=== PATIENT | female | born 1945 | race Caucasian/White ===

== ENCOUNTER 2019-05-28 15:25 | Inpatient (IN) | payer OTHER, MEDICAID ==
[~2019-05-28] VITALS: Ht 154.9 cm; Wt 60.3 kg
[2019-05-28] MEDS ORDERED: OLANZAPINE 10 MG VIAL IM ONE ×2 (15:45→15:48)
[2019-05-28] MEDS ORDERED: ACETAMINOPHEN ES 500 MG TABLET ONE (15:57)
[2019-05-28] MEDS ORDERED: ACETAMINOPHEN ES 500 MG TABLET PO ONE (16:00)
[2019-05-28] MEDS ORDERED: IV NORMAL SALINE 1000 ML BAG IV ONE (16:00)
--- NOTE | 2019-05-28 16:15 | NUR ---
Dr Garner at the bedside for MSE.
[2019-05-28 16:34] LABS: BASOPHILS # (AUTO) 0.1 K/uL (0.0-8.0); BASOPHILS % (AUTO) 0.7 % (0.0-2.0); EOSINOPHILS # (AUTO) 0.3 K/uL (0.0-0.7); EOSINOPHILS % (AUTO) 1.9 % (0.0-7.0); HEMATOCRIT 39.8 % (31.2-41.9); LYMPHOCYTES # (AUTO) 3.1 K/uL (20.0-40.0); LYMPHOCYTES % (AUTO) 21.1 % (20.5-51.5); MEAN CORPUSCULAR HEMOGLOBIN 32.6 uug (24.7-32.8); MEAN CORPUSCULAR HGB CONC 33 g/dL (32.3-35.6); MEAN CORPUSCULAR VOLUME 99.8 fL (75.5-95.3); MONOCYTES # (AUTO) 1.5 K/uL (2.0-10.0); MONOCYTES % (AUTO) 10.2 % (0.0-11.0); NEUTROPHILS # (AUTO) 9.6 K/uL (1.8-8.9); NEUTROPHILS % (AUTO) 66.1 % (38.5-71.5); PLATELET COUNT (AUTO) 304 K/uL (179-408); RED BLOOD CELL COUNT(AUTO) 3.99 MIL/uL (3.63-4.92); WHITE BLOOD COUNT (AUTO) 14.6 K/uL (3.8-11.8)
[2019-05-28] MEDS ORDERED: AMLO10TA7 PO (16:36)
[2019-05-28] MEDS ORDERED: MEMA10TA PO (16:36)
[2019-05-28] MEDS ORDERED: CRAN425C6 PO (16:36)
[2019-05-28] MEDS ORDERED: LACT10SO PO (16:36)
[2019-05-28] MEDS ORDERED: QUET25TA PO (16:36)
[2019-05-28] MEDS ORDERED: LISI-603 PO (16:36)
[2019-05-28] MEDS ORDERED: FOLIC ACID PO (16:36)
[2019-05-28] MEDS ORDERED: TRAZ-182 PO (16:36)
[2019-05-28] MEDS ORDERED: ACET-2154 PO ×3 (16:36)
[2019-05-28] MEDS ORDERED: CITA40TA11 PO (16:36)
[2019-05-28] MEDS ORDERED: MULT1TAB73 PO (16:36)
[2019-05-28] MEDS ORDERED: DIVA250T PO (16:36)
[2019-05-28] MEDS ORDERED: MELA5TAB PO (16:36)
[2019-05-28] MEDS ORDERED: MAGN400O6 PO (16:36)
[2019-05-28] MEDS ORDERED: THIA100T13 PO (16:36)
[2019-05-28] MEDS ORDERED: DONE5TAB34 PO (16:36)
[2019-05-28] MEDS ORDERED: DOCU-141 PO (16:36)
--- NOTE | 2019-05-28 17:04 | NUR ---
Pt is calm and cooperative at this time. PT's daughter at the bedside.
[2019-05-28 17:11] LABS: ALANINE AMINOTRANSFERASE 35 U/L (14-59); ALKALINE PHOSPHATASE 58 U/L (50-136); ASPARTATE AMINOTRANSFERASE 27 U/L (15-37); BILIRUBIN,DIRECT 0.1 mg/dL (0.0-0.2); BILIRUBIN,TOTAL 0.3 mg/dL (0.2-1.0); CARBON DIOXIDE 28 mmol/L (21-32); CHLORIDE 106 mmol/L (98-107); CREATININE 0.9 mg/dL (0.6-1.3); GLUCOSE 91 mg/dL (74-106); POTASSIUM 3.7 mmol/L (3.5-5.1); TOTAL PROTEIN, SERUM 6.6 g/dL (6.4-8.2); UREA NITROGEN, BLOOD 19 mg/dL (7-18)
[2019-05-28 17:25] LABS: ETHANOL < 3 MG/DL (0-0)
[2019-05-28 17:26] LABS: ACETAMINOPHEN < 2.0 ug/mL (10-30)
--- NOTE | 2019-05-28 17:35 | NUR ---
Pt is medically cleared by Dr ruiz.
[2019-05-28] MEDS ORDERED: NA P133E RC (17:45)
[2019-05-28] MEDS ORDERED: BISA10SU61 RC (17:45)
--- NOTE | 2019-05-28 17:49 | NUR ---
Sarwat Storey LCSW at the bedside for psych eval.
[2019-05-28] MEDS ORDERED: MAGNESIUM HYDROXIDE 30 ML LIQUID UDC PO PRN (20:00)
[2019-05-28] MEDS ORDERED: MAG HYDROX/AL HYDROX/SIMETH 30 ML LIQUID UDC PO PRN (20:00)
--- NOTE | 2019-05-28 20:15 | NUR ---
Notified Dr Flores regarding the need for medication reconciliation and H&P.
[2019-05-28] MEDS: LORAZEPAM 1 MG TABLET PO PRN (21:06)
[2019-05-28 21:58] VITALS: BP 121/62
--- NOTE | 2019-05-28 22:00 | NUR ---
received to care, from the emergency room, at 1914, on a 72 hour hold, for danger to self/gravely disabled, a transfer from [facility]. according to the hold, she had been screaming, and unable to stay in her bed, frequently attempting to elope. she also had made statements that she wanted to . according to her daughter, this is not her baseline behavior, and the problem started, after they had changed her psychotropic medications. upon arrival, she appeared confused, and agitated. denied SI, or any desire to harm self. unable to obtain any history from patient. she was uncooperative with assessment, continually yelling, and difficult to redirect. she was assisted to bed, but continued to yell. staff assisted her with diaper change, but she pinched and cursed. PRN ativan was given at 2105, which was effective in calming her down. as of 2199, she appears to be asleep. no distress noted. will continue to monitor closely.
--- NOTE | 2019-05-28 22:26 | NUR ---
Pt incontinent, Pt's daughter August refused straight cath to collect UA.
[2019-05-29] MEDS ORDERED: Z GUARD REMEDY PASTE 57 GM TUBE TOP SCH (03:30)
--- NOTE | 2019-05-29 06:00 | NUR ---
slept 8 hours, total.
[2019-05-29 07:30] VITALS: BP 141/78
[2019-05-29] MEDS: LORAZEPAM 1 MG TABLET PO PRN ×3 (07:54→19:59)
[2019-05-29] MEDS ORDERED: BISACODYL 10 MG SUPP.RECT RC PRN (08:15)
[2019-05-29] MEDS ORDERED: Medication Not On Formulary EA (Lactulose (Duphalac) 20 GM) PO SCH (08:15)
[2019-05-29] MEDS: THIAMINE HCL 100 MG TABLET PO SCH (08:56)
[2019-05-29] MEDS: LISINOPRIL 20 MG TABLET PO SCH (08:57)
[2019-05-29] MEDS: AMLODIPINE 10 MG TABLET PO SCH (08:57)
[2019-05-29] MEDS: DOCUSATE SODIUM 100 MG CAPSULE PO SCH (08:57)
[2019-05-29] MEDS ORDERED: Medication Not On Formulary EA (Citalopram Hydrobromide (Citalopram Hbr) 1 TAB) PO SCH (09:00)
[2019-05-29] MEDS: FOLIC ACID 1 MG TABLET PO SCH (09:00)
[2019-05-29] MEDS ORDERED: LACTULOSE 20 G/30 ML LIQUID UDC PO PRN (09:00)
[2019-05-29] MEDS ORDERED: Medication Not On Formulary EA (Multivitamins (Multivitamin) 1 TAB) PO SCH (09:00)
[2019-05-29] MEDS ORDERED: CRANBERRY EXTRACT PO SCH (09:00)
[2019-05-29] MEDS: MULTIVITAMINS,THERAPEUTIC TABLET PO SCH (09:00)
[2019-05-29] MEDS ORDERED: Medication Not On Formulary EA ([Folic Acid] 1 MG) PO SCH (09:00)
[2019-05-29] MEDS ORDERED: CITALOPRAM 20 MG TABLET PO SCH (09:00)
[2019-05-29] MEDS ORDERED: OLANZAPINE 10 MG VIAL IM ONE (09:30)
--- NOTE | 2019-05-29 10:27 | NUR ---
Received patient from maintenance supervisor 2nd shift, awake, agitated. Trying to climb out of bed. Unable to redirect. Attempted to assist patient with breakfast. Patient anxious and noncompliant with medications. notified and order received for Zyprexa 5 mg IM. Shot tolerated well. Monitoring patients resp status and monitoring for safety.
--- NOTE | 2019-05-29 12:04 | NUR ---
Social Work Note/Initial Discharge Plan: Patient currently resides at [facility]; [address] , [place] [address]; ([phone]). Per patients daughter August ([phone]) would want patient back to facility. flume worker will work with the patient and the MD regarding appropriate discharge planning. flume worker will form a safe and proper discharge.
--- NOTE | 2019-05-29 12:05 | NUR ---
Social Work Note/Family Contact: frog or oyster farmworker spoke with patients daughter August ([phone]) to gather collateral and discussed treatment plan and discharge plan.
[2019-05-29] MEDS: ACETAMINOPHEN 325 MG TABLET PO PRN (15:57)
[2019-05-29 16:04] VITALS: BP 120/78
[2019-05-29] MEDS ORDERED: DIVALPROEX 250 MG TABLET.DR PO SCH (17:00)
[2019-05-29] MEDS: DIVALPROEX SPRINKLE 125 MG CAP.SPRINK PO SCH (17:16)
[2019-05-29] MEDS ORDERED: Medication Not On Formulary EA (Melatonin 1 TAB) PO SCH (18:00)
[2019-05-29 20:00] VITALS: BP 135/68
[2019-05-29] MEDS: QUETIAPINE FUMARATE 25 MG TABLET PO SCH (21:41)
[2019-05-29] MEDS: TRAZODONE 50 MG TABLET PO SCH (21:41)
[2019-05-29] MEDS: MELATONIN 3 MG TABLET PO SCH (21:41)
--- NOTE | 2019-05-29 23:00 | NUR ---
received to care, up in ethan chair, yelling, difficult to redirect. assisted to bed, but remained agitated, and yelling. PRN ativan was given at 1958, with much encouragement. she also took her bedtime medications. remains verbally abusive, at times. as of 2299, she remains awake, intermittently, but calmer. will continue to monitor closely.
--- NOTE | 2019-05-30 06:00 | NUR ---
slept 6.5 hours, total. continues to sleep. no distress noted.
--- NOTE | 2019-05-30 06:50 | NUR ---
pt is now awake, and agitated, yelling and scratching staff. assited up in ethan chair. PRN ativan was given, at this time. report given to oncoming shift.
[2019-05-30] MEDS: LORAZEPAM 1 MG TABLET PO PRN (06:56)
[2019-05-30 07:30] VITALS: BP 138/35
[2019-05-30 07:39] LABS: BASOPHILS % (AUTO) 0.4 % (0.0-2.0); EOSINOPHILS # (AUTO) 0.2 K/uL (0.0-0.7); EOSINOPHILS % (AUTO) 2.3 % (0.0-7.0); HEMATOCRIT 41.7 % (31.2-41.9); HEMOGLOBIN 13.9 g/dL (10.9-14.3); LYMPHOCYTES # (AUTO) 2.1 K/uL (20.0-40.0); LYMPHOCYTES % (AUTO) 21.6 % (20.5-51.5); MEAN CORPUSCULAR HEMOGLOBIN 32.7 uug (24.7-32.8); MEAN CORPUSCULAR HGB CONC 33 g/dL (32.3-35.6); MEAN CORPUSCULAR VOLUME 98.3 fL (75.5-95.3); MONOCYTES # (AUTO) 0.9 K/uL (2.0-10.0); MONOCYTES % (AUTO) 9.1 % (0.0-11.0); NEUTROPHILS # (AUTO) 6.5 K/uL (1.8-8.9); NEUTROPHILS % (AUTO) 66.6 % (38.5-71.5); PLATELET COUNT (AUTO) 328 K/uL (179-408); RED BLOOD CELL COUNT(AUTO) 4.24 MIL/uL (3.63-4.92); WHITE BLOOD COUNT (AUTO) 9.7 K/uL (3.8-11.8)
[2019-05-30 07:50] LABS: CREATININE 0.7 mg/dL (0.6-1.3); MAGNESIUM 1.7 mg/dL (1.8-2.4); POTASSIUM 3.8 mmol/L (3.5-5.1)
[2019-05-30 08:02] LABS: THYROID STIMULATING HORMONE 2.899 mIU/mL (0.358-3.740)
[2019-05-30] MEDS: THIAMINE HCL 100 MG TABLET PO SCH (08:34)
[2019-05-30] MEDS: QUETIAPINE FUMARATE 25 MG TABLET PO SCH ×2 (08:34→21:00)
[2019-05-30] MEDS: AMLODIPINE 10 MG TABLET PO SCH (08:35)
[2019-05-30] MEDS: FOLIC ACID 1 MG TABLET PO SCH (08:35)
[2019-05-30] MEDS: CITALOPRAM 20 MG TABLET PO SCH (08:35)
[2019-05-30] MEDS: DOCUSATE SODIUM 100 MG CAPSULE PO SCH (08:36)
[2019-05-30] MEDS: DIVALPROEX SPRINKLE 125 MG CAP.SPRINK PO SCH ×2 (08:36→16:42)
[2019-05-30] MEDS: LISINOPRIL 20 MG TABLET PO SCH (08:36)
[2019-05-30] MEDS: MULTIVITAMINS,THERAPEUTIC TABLET PO SCH (08:37)
[2019-05-30] MEDS ORDERED: MAGNESIUM OXIDE 400 MG TABLET PO ONE (15:15)
--- NOTE | 2019-05-30 15:38 | NUR ---
Social Work Note/Family Contact: field crop harvest worker spoke with patients daughter August ([phone]) who stated that she spoke to [facility] and that they stated that they do not want to accept patient back. This feature writer will work with daughter and the facility.
[2019-05-30 20:10] VITALS: BP 131/78
[2019-05-30] MEDS: TRAZODONE 50 MG TABLET PO SCH (21:00)
[2019-05-30] MEDS: MELATONIN 3 MG TABLET PO SCH (21:00)
--- NOTE | 2019-05-30 22:00 | NUR ---
received to care, asleep in bed. easy to arouse, but goes right back to sleep. vital signs stable. all medications were held, due to sleepiness. as of 2199, she remains asleep. no distress noted. will continue to monitor closely.
[2019-05-31] MEDS: LORAZEPAM 1 MG TABLET PO PRN ×2 (04:04→12:41)
--- NOTE | 2019-05-31 04:09 | NUR ---
pt is now awake, yelling and agitated. diaper change was performed, but she remains aggressive, yelling, cusing, and attempting to pinch and strike staff. PRN ativan was given at this time, with much encouragement.
--- NOTE | 2019-05-31 05:19 | NUR ---
remains agitated, yelling and cursing. will continue to monitor closely.
--- NOTE | 2019-05-31 06:30 | NUR ---
slept 8.0 hours, total. assisted with am care, and bedbath. PRN ativan was given at 0400 for agitation/ yelling. she was calmer now, but remains verbally abusive, and combative with care. currently up in ethan chair, talking to self.
[2019-05-31 07:30] VITALS: BP 114/93
[2019-05-31 07:43] LABS: BASOPHILS # (AUTO) 0.1 K/uL (0.0-8.0); HEMATOCRIT 44.5 % (31.2-41.9); HEMOGLOBIN 14.8 g/dL (10.9-14.3); MEAN CORPUSCULAR HGB CONC 33 g/dL (32.3-35.6); MEAN CORPUSCULAR VOLUME 98.9 fL (75.5-95.3); WHITE BLOOD COUNT (AUTO) 23.4 K/uL (3.8-11.8)
[2019-05-31 07:49] LABS: BASOPHILS % (AUTO) 0.3 % (0.0-2.0); EOSINOPHILS # (AUTO) 0.2 K/uL (0.0-0.7); EOSINOPHILS % (AUTO) 0.7 % (0.0-7.0); LYMPHOCYTES % (AUTO) 8.4 % (20.5-51.5); MONOCYTES # (AUTO) 1.9 K/uL (2.0-10.0); MONOCYTES % (AUTO) 8.2 % (0.0-11.0); NEUTROPHILS # (AUTO) 19.3 K/uL (1.8-8.9); NEUTROPHILS % (AUTO) 82.4 % (38.5-71.5); PLATELET COUNT (AUTO) 375 K/uL (179-408)
[2019-05-31] MEDS: DIVALPROEX SPRINKLE 125 MG CAP.SPRINK PO SCH ×2 (08:07→17:01)
[2019-05-31] MEDS: CITALOPRAM 20 MG TABLET PO SCH (08:07)
[2019-05-31] MEDS: DOCUSATE SODIUM 100 MG CAPSULE PO SCH (08:07)
[2019-05-31] MEDS: QUETIAPINE FUMARATE 25 MG TABLET PO SCH ×3 (08:07→20:07)
[2019-05-31] MEDS: THIAMINE HCL 100 MG TABLET PO SCH (08:08)
[2019-05-31] MEDS: FOLIC ACID 1 MG TABLET PO SCH (08:09)
[2019-05-31] MEDS: MULTIVITAMINS,THERAPEUTIC TABLET PO SCH (08:09)
[2019-05-31] MEDS: AMLODIPINE 10 MG TABLET PO SCH (08:10)
[2019-05-31] MEDS: LISINOPRIL 20 MG TABLET PO SCH (08:11)
[2019-05-31 08:48] LABS: CREATININE 1.1 mg/dL (0.6-1.3); MAGNESIUM 1.8 mg/dL (1.8-2.4); PHOSPHOROUS 3.6 mg/dL (2.5-4.9); POTASSIUM 4.5 mmol/L (3.5-5.1)
[2019-05-31 09:22] LABS: LYMPHOCYTES % (MANUAL) 6 % (20-40); MONOCYTES % (MANUAL) 9 % (2-10); NEUTROPHILS % (MANUAL) 85 % (42-75)
[2019-05-31] MEDS ORDERED: MIRALAX 17 GM POWD.PACK PO PRN (11:45)
[2019-05-31] MEDS: ACETAMINOPHEN 325 MG TABLET PO PRN (12:41)
[2019-05-31] MEDS: Z GUARD REMEDY PASTE 57 GM TUBE TOP PRN (13:59)
--- NOTE | 2019-05-31 14:23 | NUR ---
Social Work Note/Discharge Plan: ironworker foreman spoke to Simi from [facility] ([phone]) who stated that patient is welcomed back upon discharge.
[2019-05-31] MEDS: CEphaleXIN 500 MG CAPSULE PO SCH ×2 (14:36→20:07)
--- NOTE | 2019-05-31 14:47 | NUR ---
Social Work Note/Family Contact: pupil personnel worker spoke to patients daughter Yvonne ([phone]) who stated that she is feeling frustrated with this process with her mother. pupil personnel worker provided her comfort and was actively listening. pupil personnel worker provided Yvonne support and education.
[2019-05-31 16:10] LABS: BILIRUBIN,DIRECT 0.1 mg/dL (0.0-0.2); BILIRUBIN,TOTAL 0.4 mg/dL (0.2-1.0)
--- NOTE | 2019-05-31 16:50 | NUR ---
Gps/Band Bias Machine Operator- patient's daughter, August, called, wants to know progress of patient..Adequate information provided. Kept patient by Nurses station, fluids offere. Assisted with her meals, c/o dry mouth. Incontienent of urine, toileted, coccygeal area redness, brownish discolorations, z-guard applied, kept skin clean and dry.
[2019-05-31 17:08] VITALS: BP 100/69
--- NOTE | 2019-05-31 18:40 | NUR ---
Gps/Tinsmith Apprentice- Kept patient in her ethan-chair for safety. Tends to slide off her ethan-chair, fluids offered.Figity ,restless.
[2019-05-31 20:00] VITALS: BP 113/66
[2019-05-31] MEDS: TRAZODONE 50 MG TABLET PO SCH (20:07)
[2019-05-31] MEDS: MELATONIN 3 MG TABLET PO SCH (20:10)
[2019-06-01] MEDS: Z GUARD REMEDY PASTE 57 GM TUBE TOP PRN (01:24)
[2019-06-01 07:30] VITALS: BP 148/62
[2019-06-01 07:41] LABS: BASOPHILS # (AUTO) 0.1 K/uL (0.0-8.0); EOSINOPHILS # (AUTO) 0.4 K/uL (0.0-0.7); EOSINOPHILS % (AUTO) 2.6 % (0.0-7.0); HEMATOCRIT 39.4 % (31.2-41.9); HEMOGLOBIN 13.1 g/dL (10.9-14.3); LYMPHOCYTES # (AUTO) 3.6 K/uL (20.0-40.0); LYMPHOCYTES % (AUTO) 24.8 % (20.5-51.5); MEAN CORPUSCULAR HEMOGLOBIN 32.8 uug (24.7-32.8); MEAN CORPUSCULAR HGB CONC 33 g/dL (32.3-35.6); MEAN CORPUSCULAR VOLUME 98.7 fL (75.5-95.3); MONOCYTES # (AUTO) 1.5 K/uL (2.0-10.0); MONOCYTES % (AUTO) 10.4 % (0.0-11.0); NEUTROPHILS # (AUTO) 8.8 K/uL (1.8-8.9); NEUTROPHILS % (AUTO) 61.2 % (38.5-71.5); PLATELET COUNT (AUTO) 300 K/uL (179-408); RED BLOOD CELL COUNT(AUTO) 3.99 MIL/uL (3.63-4.92); WHITE BLOOD COUNT (AUTO) 14.4 K/uL (3.8-11.8)
[2019-06-01 08:09] LABS: CARBON DIOXIDE 27 mmol/L (21-32); CHLORIDE 107 mmol/L (98-107); GLUCOSE 97 mg/dL (74-106); MAGNESIUM 2.1 mg/dL (1.8-2.4); POTASSIUM 4.3 mmol/L (3.5-5.1); UREA NITROGEN, BLOOD 25 mg/dL (7-18)
[2019-06-01 08:20] LABS: CREATININE 1.2 mg/dL (0.6-1.3)
[2019-06-01] MEDS: CEphaleXIN 500 MG CAPSULE PO SCH ×2 (08:56→20:01)
[2019-06-01] MEDS: FOLIC ACID 1 MG TABLET PO SCH (08:56)
[2019-06-01] MEDS: DOCUSATE SODIUM 100 MG CAPSULE PO SCH (08:57)
[2019-06-01] MEDS: MULTIVITAMINS,THERAPEUTIC TABLET PO SCH (08:57)
[2019-06-01] MEDS: THIAMINE HCL 100 MG TABLET PO SCH (08:57)
[2019-06-01] MEDS: DIVALPROEX SPRINKLE 125 MG CAP.SPRINK PO SCH ×2 (08:57→17:44)
[2019-06-01] MEDS: AMLODIPINE 10 MG TABLET PO SCH (08:57)
[2019-06-01] MEDS: LISINOPRIL 20 MG TABLET PO SCH (08:57)
[2019-06-01] MEDS: CITALOPRAM 20 MG TABLET PO SCH (08:57)
[2019-06-01] MEDS: QUETIAPINE FUMARATE 25 MG TABLET PO SCH ×4 (09:18→20:01)
[2019-06-01] MEDS ORDERED: LORAZEPAM 2 MG/1 ML VIAL IM ONE (09:30)
[2019-06-01] MEDS ORDERED: diphenhydrAMINE 50 MG/1 ML VIAL IM ONE (09:30)
[2019-06-01] MEDS ORDERED: HALOPERIDOL LACTATE 5 MG/1 ML VIAL IM ONE (09:30)
[2019-06-01 16:50] LABS: *BILIRUBIN,URIN NEGATIVE (NEGATIVE); *BLOOD, URINE NEGATIVE (NEGATIVE); *CLARITY,URINE SLIGHTLY CLOUDY (CLEAR); *COLOR,URINE DARK YELLOW (YELLOW); *KETONES,URINE TRACE (NEGATIVE); LEUKOCYTE ESTERASE ,URINE NEGATIVE (NEGATIVE); NITRITE, URINE NEGATIVE (NEGATIVE); UGLUCOSE NEGATIVE (NEGATIVE)
[2019-06-01 17:36] VITALS: BP 134/66
[2019-06-01 18:10] LABS: MUCUS,URINE MANY /LPF (0-FEW); SQUAMOUS EPITHELIAL CELL,UR MODERATE /HPF (NONE SEEN)
[2019-06-01] MEDS: TRAZODONE 50 MG TABLET PO SCH (20:00)
[2019-06-01] MEDS: MELATONIN 3 MG TABLET PO SCH (20:09)
[2019-06-01 20:26] VITALS: BP 126/57
[2019-06-02 07:30] VITALS: BP 145/65
[2019-06-02] MEDS: AMLODIPINE 10 MG TABLET PO SCH (08:37)
[2019-06-02] MEDS: CEphaleXIN 500 MG CAPSULE PO SCH ×2 (08:37→20:17)
[2019-06-02] MEDS: THIAMINE HCL 100 MG TABLET PO SCH (08:37)
[2019-06-02] MEDS: MULTIVITAMINS,THERAPEUTIC TABLET PO SCH (08:37)
[2019-06-02] MEDS: QUETIAPINE FUMARATE 25 MG TABLET PO SCH ×4 (08:37→20:17)
[2019-06-02] MEDS: DIVALPROEX SPRINKLE 125 MG CAP.SPRINK PO SCH ×2 (08:37→16:52)
[2019-06-02] MEDS: CITALOPRAM 20 MG TABLET PO SCH (08:38)
[2019-06-02] MEDS: DOCUSATE SODIUM 100 MG CAPSULE PO SCH (08:38)
[2019-06-02] MEDS: LISINOPRIL 20 MG TABLET PO SCH (08:38)
[2019-06-02] MEDS: FOLIC ACID 1 MG TABLET PO SCH (08:38)
[2019-06-02 16:00] VITALS: BP 136/60
[2019-06-02] MEDS: ACETAMINOPHEN 325 MG TABLET PO PRN (16:52)
[2019-06-02] MEDS: TRAZODONE 50 MG TABLET PO SCH (20:17)
[2019-06-02] MEDS: MELATONIN 3 MG TABLET PO SCH (20:18)
[2019-06-02 20:36] VITALS: BP 112/56
[2019-06-02] MEDS: MEGESTROL ACETATE 400 MG/10 ML LIQUID UDC PO SCH (21:00)
--- NOTE | 2019-06-03 02:09 | NUR ---
Social Work Note/Coordination of Care: utility maintenance worker contacted NATALYA ([phone]) from [facility] and faxed patients H & P psychiatric notes and progress notes. Per NATALYA, he declined patient due to insurance not being accepted. utility maintenance worker contacted Anita ([phone]) from [facility] and faxed patients H & P psychiatric notes and progress notes. Per Anita, he declined patient due to insurance not being accepted. utility maintenance worker contacted Chyna from [facility] ([phone]) faxed patients H & P psychiatric notes and progress notes. Per Chyna, he declined patient due to insurance not being accepted.
--- NOTE | 2019-06-03 02:13 | NUR ---
Social Work Note/Family Contact: reinforcing iron worker helper spoke to patients daughter August ([phone]) and for alternative placement but daughter refused. However, this worker also tried SNFs and patient was not accepted due to insurance issues. Per August, she stated that she will change her mothers insurance to Medicare and will transfer her out of [facility].
[2019-06-03 07:30] VITALS: BP 171/75
--- NOTE | 2019-06-03 08:15 | NUR ---
Social Work Note/Family Contact: conservation worker spoke with patients daughter August ([phone]) who stated that she wants her mother back to [facility] but stated that the facility is giving her a hard time. This typewriter mechanic spoke to admin coordinator to help with this process. Per August, she stated that [facility] close to her house and that it is convenient. Per August, she stated by the end of the month she will change her mothers insurance to medicare so that she is able to find a better SNF.
[2019-06-03 08:44] LABS: CREATININE 0.8 mg/dL (0.6-1.3); POTASSIUM 4.3 mmol/L (3.5-5.1)
[2019-06-03 08:47] LABS: BASOPHILS # (AUTO) 0.1 K/uL (0.0-8.0); BASOPHILS % (AUTO) 0.6 % (0.0-2.0); EOSINOPHILS # (AUTO) 0.2 K/uL (0.0-0.7); EOSINOPHILS % (AUTO) 2.5 % (0.0-7.0); HEMATOCRIT 40.4 % (31.2-41.9); HEMOGLOBIN 13.4 g/dL (10.9-14.3); LYMPHOCYTES # (AUTO) 1.3 K/uL (20.0-40.0); LYMPHOCYTES % (AUTO) 13.4 % (20.5-51.5); MEAN CORPUSCULAR HEMOGLOBIN 32.8 uug (24.7-32.8); MEAN CORPUSCULAR HGB CONC 33 g/dL (32.3-35.6); MEAN CORPUSCULAR VOLUME 98.9 fL (75.5-95.3); MONOCYTES # (AUTO) 0.8 K/uL (2.0-10.0); MONOCYTES % (AUTO) 8.3 % (0.0-11.0); NEUTROPHILS # (AUTO) 7.3 K/uL (1.8-8.9); NEUTROPHILS % (AUTO) 75.2 % (38.5-71.5); PLATELET COUNT (AUTO) 282 K/uL (179-408); RED BLOOD CELL COUNT(AUTO) 4.09 MIL/uL (3.63-4.92)
[2019-06-03 08:49] LABS: WHITE BLOOD COUNT (AUTO) 9.7 K/uL (3.8-11.8)
[2019-06-03] MEDS: MEGESTROL ACETATE 400 MG/10 ML LIQUID UDC PO SCH ×2 (09:00→20:01)
[2019-06-03] MEDS: CITALOPRAM 20 MG TABLET PO SCH (09:18)
[2019-06-03] MEDS: CEphaleXIN 500 MG CAPSULE PO SCH ×2 (09:18→20:01)
[2019-06-03] MEDS: QUETIAPINE FUMARATE 25 MG TABLET PO SCH ×4 (09:19→20:00)
[2019-06-03] MEDS: DOCUSATE SODIUM 100 MG CAPSULE PO SCH (09:19)
[2019-06-03] MEDS: AMLODIPINE 10 MG TABLET PO SCH (09:19)
[2019-06-03] MEDS: THIAMINE HCL 100 MG TABLET PO SCH (09:19)
[2019-06-03] MEDS: MULTIVITAMINS,THERAPEUTIC TABLET PO SCH (09:19)
[2019-06-03] MEDS: FOLIC ACID 1 MG TABLET PO SCH (09:19)
[2019-06-03] MEDS: LISINOPRIL 20 MG TABLET PO SCH (09:19)
[2019-06-03] MEDS: DIVALPROEX SPRINKLE 125 MG CAP.SPRINK PO SCH ×2 (09:19→16:37)
--- NOTE | 2019-06-03 14:47 | NUR ---
Social Work Note/UR Note: woodworker helper contacted insurance [facility] ([phone]) and left Jacqueline hope verbal clinicals and asked to call this procedure writer to fax clinicals.
[2019-06-03 15:43] VITALS: BP 95/49
[2019-06-03] MEDS: LORAZEPAM 1 MG TABLET PO PRN ×2 (15:57→21:58)
[2019-06-03] MEDS: TRAZODONE 50 MG TABLET PO SCH (20:00)
[2019-06-03] MEDS: MELATONIN 3 MG TABLET PO SCH (20:01)
[2019-06-03 20:34] VITALS: BP 122/68
[2019-06-03] MEDS: Z GUARD REMEDY PASTE 57 GM TUBE TOP PRN (21:58)
--- NOTE | 2019-06-03 22:00 | NUR ---
received to care, up in ethan chair, restless, yelling, difficult to redirect. calmed down after taking her bedtime medications. as of 2199, she remains slightly restless, in bed, yelling intermittently. PRN ativan was given at 2157. will continue to monitor closely.
--- NOTE | 2019-06-03 23:00 | NUR ---
appears to be asleep. no distress noted.
--- NOTE | 2019-06-04 06:00 | NUR ---
slept 4.5 hours, total. continues to sleep. no distress noted.
[2019-06-04 07:48] VITALS: BP 121/71
[2019-06-04] MEDS: QUETIAPINE FUMARATE 25 MG TABLET PO SCH ×4 (09:00→20:05)
[2019-06-04] MEDS: DIVALPROEX SPRINKLE 125 MG CAP.SPRINK PO SCH ×2 (09:00→16:09)
[2019-06-04] MEDS: THIAMINE HCL 100 MG TABLET PO SCH (09:00)
[2019-06-04] MEDS: MEGESTROL ACETATE 400 MG/10 ML LIQUID UDC PO SCH ×2 (09:00→20:04)
[2019-06-04] MEDS: DOCUSATE SODIUM 100 MG CAPSULE PO SCH (09:00)
[2019-06-04] MEDS: AMLODIPINE 10 MG TABLET PO SCH (09:00)
[2019-06-04] MEDS: LISINOPRIL 20 MG TABLET PO SCH (09:00)
[2019-06-04] MEDS: FOLIC ACID 1 MG TABLET PO SCH (09:00)
[2019-06-04] MEDS: CITALOPRAM 20 MG TABLET PO SCH (09:00)
[2019-06-04] MEDS: MULTIVITAMINS,THERAPEUTIC TABLET PO SCH (09:00)
[2019-06-04] MEDS: CEphaleXIN 500 MG CAPSULE PO SCH ×2 (09:00→20:05)
--- NOTE | 2019-06-04 09:00 | NUR ---
Social Work Note/Hearing: Social Work Note/PC Hearing Notification: body shop worker contacted patients daughter August, ([phone]) and notified patients probable cause of hearing today.
--- NOTE | 2019-06-04 10:06 | NUR ---
Social Work Note/UR Note: asbestos removal worker contacted Jacqueline from [facility] ([phone]) to send clinicals but was unable to reach. This web content writer left a voicemail.
[2019-06-04] MEDS: LORAZEPAM 1 MG TABLET PO PRN (10:33)
[2019-06-04] MEDS: ACETAMINOPHEN 325 MG TABLET PO PRN (10:33)
--- NOTE | 2019-06-04 11:48 | NUR ---
Social Work Note/Individual Therapy: box worker met with patient for brief counseling. Patient was unable to answer questions due to being cognitively impaired.
--- NOTE | 2019-06-04 15:18 | NUR ---
Social Work Note/Family Contact: foster care social worker spoke with patients daughter Yvonne ([phone]) who stated that she wants to speak to . This automatic typewriter inspector notified Dr. Varela that daughter Yvonne would like to speak to him.
--- NOTE | 2019-06-04 15:26 | NUR ---
Social Work Note/UR Note: forming process worker spoke with Jacqueline ([phone]) authorization: [id number] and stay is extended until 06/06.
[2019-06-04 16:00] VITALS: BP 139/79
[2019-06-04] MEDS: MELATONIN 3 MG TABLET PO SCH (20:05)
[2019-06-04] MEDS: TRAZODONE 50 MG TABLET PO SCH (20:05)
[2019-06-04 20:15] VITALS: BP 132/80
[2019-06-05 07:30] VITALS: BP 145/92
[2019-06-05] MEDS: DIVALPROEX SPRINKLE 125 MG CAP.SPRINK PO SCH ×2 (08:12→16:45)
[2019-06-05] MEDS: AMLODIPINE 10 MG TABLET PO SCH (08:13)
[2019-06-05] MEDS: QUETIAPINE FUMARATE 25 MG TABLET PO SCH ×4 (08:13→20:06)
[2019-06-05] MEDS: CEphaleXIN 500 MG CAPSULE PO SCH (08:13)
[2019-06-05] MEDS: MULTIVITAMINS,THERAPEUTIC TABLET PO SCH (08:14)
[2019-06-05] MEDS: THIAMINE HCL 100 MG TABLET PO SCH (08:14)
[2019-06-05] MEDS: MEGESTROL ACETATE 400 MG/10 ML LIQUID UDC PO SCH ×2 (08:14→20:06)
[2019-06-05] MEDS: CITALOPRAM 20 MG TABLET PO SCH (08:14)
[2019-06-05] MEDS: LISINOPRIL 20 MG TABLET PO SCH (08:14)
[2019-06-05] MEDS: DOCUSATE SODIUM 100 MG CAPSULE PO SCH (08:15)
[2019-06-05] MEDS: FOLIC ACID 1 MG TABLET PO SCH (08:15)
[2019-06-05] MEDS: LORAZEPAM 1 MG TABLET PO PRN ×2 (10:56→19:22)
[2019-06-05] MEDS: Z GUARD REMEDY PASTE 57 GM TUBE TOP PRN (14:24)
[2019-06-05 16:00] VITALS: BP 134/88
--- NOTE | 2019-06-05 16:17 | NUR ---
Social Work Note/Family Contact: spool worker contacted patients daughter August ([phone]) and stated that patient will be discharged back to [facility]. Per August, she disagreed with discharge plan and stated that her mother is not stable and that her medication is not stable. This com writer had to educate patient and stated that the facility does not want to accept her mother. This com writer contacted the facility and Gardenia from [facility] stated that they are accepting patient 06/06/2019.
[2019-06-05] MEDS: TRAZODONE 50 MG TABLET PO SCH (20:06)
[2019-06-05] MEDS: MELATONIN 3 MG TABLET PO SCH (20:06)
[2019-06-05 21:27] VITALS: BP 161/74
[2019-06-06 07:30] VITALS: BP 140/73
[2019-06-06] MEDS: LORAZEPAM 1 MG TABLET PO PRN ×2 (08:04→15:03)
[2019-06-06] MEDS: MULTIVITAMINS,THERAPEUTIC TABLET PO SCH (08:04)
[2019-06-06] MEDS: DOCUSATE SODIUM 100 MG CAPSULE PO SCH (08:04)
[2019-06-06] MEDS: AMLODIPINE 10 MG TABLET PO SCH (08:05)
[2019-06-06] MEDS: LISINOPRIL 20 MG TABLET PO SCH (08:05)
[2019-06-06] MEDS: QUETIAPINE FUMARATE 25 MG TABLET PO SCH ×2 (08:05→13:00)
[2019-06-06] MEDS: CITALOPRAM 20 MG TABLET PO SCH (08:05)
[2019-06-06] MEDS: MEGESTROL ACETATE 400 MG/10 ML LIQUID UDC PO SCH (08:06)
[2019-06-06] MEDS: DIVALPROEX SPRINKLE 125 MG CAP.SPRINK PO SCH (08:06)
[2019-06-06] MEDS: FOLIC ACID 1 MG TABLET PO SCH (08:06)
[2019-06-06] MEDS: THIAMINE HCL 100 MG TABLET PO SCH (08:06)
--- NOTE | 2019-06-06 08:20 | NUR ---
Social Work Note/Family Contact: poultry farm worker contacted patients daughter August ([phone]) and left a voicemail. This tag writer stated in the voicemail that patient will be discharged back to [facility] at 12PM and if she were to disagree with discharge plan then she would be served with a denial letter and that she would have to appeal by 11AM.
--- NOTE | 2019-06-06 09:46 | NUR ---
Social Work Note/Firearms Report: Exhaust Equipment Operator completed and submitted a [facility] firearms report for 5250 grave disability certification. A copy of report has been placed in patient chart.
--- NOTE | 2019-06-06 09:49 | NUR ---
Social Work Note/Discharge: Patient will be discharged to residential facility, [facility] [address] , [place] [address]; ([phone]) via ambulance transportation at 12PM. Sr. Operations Manager spoke with Gardenia buster ([phone]), who stated patient will be accepted back at facility today. Per daughter August ([phone]) has been made aware and agreeable with discharge plans. Patient is alert and oriented x1-2 and is unable to plan for self-care. Patient denies any suicidal or homicidal ideations. Patient is aware and agreeable with discharge plans. Patient will continue to follow-up with (Psychiatrist) Dr. Carney and (Patient Support Assistant) Dr. Jett at [facility]; ([phone]). Patient presents with euthymic mood and congruent affect.
--- NOTE | 2019-06-06 15:19 | NUR ---
Report called to Mary Jane at [facility]. Patient transferring to SNF via ambulance at 630 pm. VS are stable at this time and no acute distress noted. Daughter aware of transfer per clinical social work aide. Continuing to keep patient safe until discharged.
[2019-06-06] MEDS: Z GUARD REMEDY PASTE 57 GM TUBE TOP PRN (15:57)
[2019-06-06 16:32] VITALS: BP 115/54
--- NOTE | 2019-06-06 16:36 | NUR ---
Patient had early ambulance cotton picking machine operator and has been dc to SNF without any difficulty.
== END 2019-06-06 17:00 | DRG 885 ==
LOC: ER 15:28 → GPS 19:07
PROVIDERS: ADMIT Psychiatry & Neurology Psychiatry; ATTEND Student in an Organized Health Care Education/Training Program
DX: F29 Unspecified psychosis not due to a substance or known physiological condition (principal); N17.0 Acute kidney failure with tubular necrosis; G93.41 Metabolic encephalopathy; F03.91 Unspecified dementia, unspecified severity, with behavioral disturbance; E44.0 Moderate protein-calorie malnutrition; N39.0 Urinary tract infection, site not specified; I10 Essential (primary) hypertension; E83.42 Hypomagnesemia; E78.5 Hyperlipidemia, unspecified; F41.9 Anxiety disorder, unspecified; E86.0 Dehydration; R13.10 Dysphagia, unspecified; M75.121 Complete rotator cuff tear or rupture of right shoulder, not specified as traumatic
CPT/HCPCS: 36415; 70030-TC; 70450; 71045; 73060; 80164; 83605; 83735; 84100; 84443; 85025; 85610; 85730; 87040; 87086; 93005; A4663; A9150; G0480; G0480-TC; J1200; J1630; J2060; J2358; J7030; J8999